=== PATIENT | male | born 1960 | race Caucasian/White ===

== ENCOUNTER 2016-10-09 10:05 | Emergency (ER) | payer OTHER ==
[~2016-10-09] VITALS: Ht 180.3 cm; Wt 90.1 kg
[~2016-10-09 10:05] MED LIST: ASPCH81 PO; SIMV40TA2 PO
[2016-10-09 10:11] VITALS: TEMP 36.7; Ht 180.3 cm; Wt 90.1 kg
[2016-10-09 10:34] VITALS: O2SAT 99
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
[2016-10-09] MEDS ORDERED: OXYC1TAB3 PO (12:08)
[2016-10-09 12:24] VITALS: BP 119/76; PULSE 55; O2SAT 98
== END 2016-10-09 12:20 | disposition home or self-care (01) ==
LOC: C.EDB 10:07
DX: S22.31XA Fracture of one rib, right side, initial encounter for closed fracture (principal); M54.2 Cervicalgia; W20.8XXA Other cause of strike by thrown, projected or falling object, initial encounter; Y93.11 Activity, swimming; Y92.832 Beach as the place of occurrence of the external cause; E78.5 Hyperlipidemia, unspecified

== ENCOUNTER → 2017-05-22 | Outpatient (CLI) | payer OTHER ==
[2017-05-22 13:51] LABS: ALBUMIN 4.1 gm/dl (3.4-5.0); ALT/SGPT 27 U/L (12-78); AST/SGOT 16 U/L (15-37); BLOOD UREA NITROGEN 14 mg/dl (7-18); CARBON DIOXIDE 28 mmol/L (21-32); CHOLESTEROL 155 mg/dl (0-200); CREATININE 1.06 mg/dl (0.60-1.40); GLUCOSE 95 mg/dl (70-99); SODIUM 139 mmol/L (136-145)
[2017-05-22 13:52] LABS: ALKALINE PHOSPHATASE 39 U/L (45-117); LDL CHOLESTEROL CALCULATED 96 mg/dl; TOTAL PROTEIN 7.6 gm/dl (6.4-8.2)
== END | disposition home or self-care (01) ==
LOC: C.LABPBG 07:57
PROVIDERS: ATTEND Family Medicine
DX: Z86.79 Personal history of other diseases of the circulatory system (principal); G47.33 Obstructive sleep apnea (adult) (pediatric); E78.5 Hyperlipidemia, unspecified

== ENCOUNTER 2022-11-12 04:04 | Inpatient (IN) ==
[2022-11-12] MEDS ORDERED: MoRPHine SULFATE 4 MG/ML 1 ML CARP\\VIAL IV STA ×2 (04:20→06:35)
[2022-11-12] MEDS ORDERED: ONDANSETRON INJ 2 MG/ML 2 ML VIAL IV STA (04:20)
[2022-11-12] MEDS ORDERED: SODIUM CHLORIDE 0.9% 500 ML IV STA (04:20)
--- NOTE | 2022-11-12 04:23 | Emergency Department Note ---
History of Present Illness General Chief complaint: Cardiac Assessment Stated complaint: abd Time Seen by Provider: 11/12/22 04:12 History of Present Illness Maximum Pain Intensity: 8 This 62-year-old gentleman on Eliquis for DVT in the left leg presents the ER complaining of right upper quadrant pain tonight after eating pizza. No history of similar symptoms in the past. Patient denies back pain, fevers, diarrhea, trauma to the area. The pain does radiate to his chest. Home Medications Medication Instructions Recorded Confirmed Type Auto Titrating CPAP See Rx Instructions .Route 09/16/20 07/12/22 Rx .COMPLEX #1 ea apixaban 5 mg tablet (Eliquis) 5 mg PO BID 07/11/22 07/12/22 History cyclobenzaprine 5 mg tablet 5 mg PO TID PRN muscle spasm #30 07/12/22 07/12/22 Rx tabs prednisone 10 mg tablet See Rx Instructions PO DAILY #20 07/12/22 07/12/22 Rx tabs Allergies Allergy/AdvReac Type Severity Reaction Status Date / Time amoxicillin Allergy Unknown Hives Verified 07/12/22 11:31 aspirin AdvReac Intermediate EPISTAXIS Verified 07/12/22 11:31 atorvastatin AdvReac Muscle Pain Verified 07/12/22 11:31 Past Med/Surg History Medical History Anemia Diverticular disease History of COVID-19 11/2020; fever, loss of taste/smell; resolved. HLD (hyperlipidemia) Injury of right rotator cuff Perforated bowel hx Sleep apnea CPAP Surgical History History of arthroscopy of right knee History of colon resection History of colonoscopy History of esophagogastroduodenoscopy (EGD) Family History Grandmother (Maternal) Colorectal cancer Father Myocardial infarction Mother Ovarian cancer Other No family history of adverse response to anesthesia Denies family history of Prostate cancer Breast cancer Social History Smoking Status: Never smoker Second Hand Exposure: Yes (hx); Do You Dip or Chew Tobacco: Yes (1 can every day); Hx Alcohol Use: No Hx Substance Use: No Preferred Language: Colombian Communication Ability: Effective Visual Impairment: No Limitations Hearing Ability: Normal Speech Language Pathologist Required: No Beliefs That Will Affect Care: None marital status: Current Living Situation: Spouse current occupational status: employed current occupation: construction Feels Safe at Home: Yes Childhood Exposure to Second-Hand Smoke: Yes Diet: regular caffeine: Yes (Coffee x 2 per day. Soda x 6 per day.) during the past year weight has: remained stable Dental Care, Regularly: Yes Physical Activity Frequency: Daily Seatbelt Use: sometimes Sunscreen Use: No Assistive Devices: None Review of Systems A total of 10 systems reviewed and were otherwise negative Physical Exam Vital Signs Vital Signs - 24 hr 11/12/22 04:09 11/12/22 04:35 11/12/22 05:35 Temperature 36.8 C Temperature Source Temporal Artery Scan Pulse Rate 54 L 54 L 54 L Pulse Rate [Apical] Pulse Rhythm Regular Pulse Rhythm [Apical] Pulse Strength [Apical] Respiratory Rate 20 16 Respiratory Effort / Characteristics Non-Labored Respiratory Depth Normal Respiratory Pattern Blood Pressure 159/94 H Blood Pressure [Right Arm] Blood Pressure Mean 115 Blood Pressure Mean [Right Arm] Pulse Oximetry 99 93 Oxygen Delivery Method Room Air Room Air Sepsis Recent Fever Within 48 Hours No Sepsis New/Unexplained Change in Mental Status N/A Sepsis Action Taken by Nursing No Action Required 11/12/22 06:00 Temperature Temperature Source Pulse Rate Pulse Rate [Apical] 60 Pulse Rhythm Pulse Rhythm [Apical] Regular Pulse Strength [Apical] Normal Respiratory Rate 18 Respiratory Effort / Characteristics Non-Labored Spontaneous Respiratory Depth Normal Respiratory Pattern Regular Blood Pressure Blood Pressure [Right Arm] 129/84 Blood Pressure Mean Blood Pressure Mean [Right Arm] 99 Pulse Oximetry 96 Oxygen Delivery Method Room Air Sepsis Recent Fever Within 48 Hours Sepsis New/Unexplained Change in Mental Status Sepsis Action Taken by Nursing VITALS: Vitals are noted on the nurse's note and reviewed by myself. Vital signs stable. GENERAL: Pleasant gentleman who appears in pain, in no acute distress, nondiaphoretic, well-developed well-nourished. SKIN: The skin was without rashes, erythema, edema, or bruising. There is no tenting of the skin. Capillary reflex less than 2 seconds. HEAD: Normocephalic atraumatic. EARS: External auditory canals clear, EYES: Pupils equal round and reactive to light and accommodation. Conjunctivae without injection, sclerae without icterus. Extraocular movements intact. NOSE: Patent, turbinates without inflammation or discharge. MOUTH: Mucous membranes moist. Pharynx without erythema or exudate. Uvula midline. Airway patent. Tongue does not deviate. NECK: Supple without nuchal rigidity. No lymphadenopathy. No thyromegaly. Cervical spine is nontender. No JVD. HEART: Regular rate and rhythm LUNGS: Clear to auscultation bilaterally without wheezes, rales or rhonchi. No retractions or accessory muscle use. ABDOMEN: Positive bowel sounds x 4. Normal tympanic percussion. Soft, tender right upper quadrant, without masses or organomegaly. No guarding or rebound tenderness. No CVA tenderness MUSCULOSKELETAL: No muscle atrophy, erythema, or edema noted. NEURO: Patient was alert and oriented to person place and time. Normal sensation to light and sharp touch. No focal neurological deficits. Course Administered Medications Discontinued Medications Sodium Chloride (Nss) 500 mls @ 999 mls/hr IV .Q31M STA Stop: 11/12/22 04:50 Last Infusion: 11/12/22 05:29 Dose: 0 mls/hr Documented By: Admin: 11/12/22 04:33 Dose: 999 mls/hr Documented By: PRAKASH Morphine Sulfate (Morphine Sulfate 4 Mg/Ml 1 Ml Carp\Vial) 4 mg IV NOW STA Stop: 11/12/22 04:21 Last Admin: 11/12/22 04:33 Dose: 4 mg Documented By: PRAKASH Ondansetron HCl (Ondansetron Inj 2 Mg/Ml 2 Ml Vial) 4 mg IV NOW STA Stop: 11/12/22 04:21 Last Admin: 11/12/22 04:33 Dose: 4 mg Documented By: PRAKASH Medical Decision Making Medical Records Attestation: I reviewed the patient's medical records. Home Medications Current Medication List: was personally reviewed by me Laboratory Data Attestation: I reviewed the patient's lab results. 11/12/22 04:25 11/12/22 04:25 Lab Results 11/12/22 11/12/22 Range/Units 04:25 04:25 WBC 7.83 (4.8-10.8) K/ul RBC 4.49 L (4.70-6.10) M/uL Hgb 12.9 L (14.0-18.0) g/dl Hct 38.9 L (42.0-52.0) % MCV 86.6 (80.0-100.0) fL MCH 28.7 (25.0-34.0) pg MCHC 33.2 (32.0-36.0) g/dL RDW Std Deviation 41.5 (36.4-46.3) fL RDW Coeff of Gian 13.2 (11.5-14.5) % Plt Count 207 (130-400) K/uL MPV 9.4 (9.4-12.4) fL Immature Gran % (Auto) 0.8 % Neut % (Auto) 66.6 % Lymph % (Auto) 23.0 % Candler % (Auto) 7.9 % Eos % (Auto) 1.3 % Baso % (Auto) 0.4 % Neut # (Auto) 5.22 (1.40-6.50) K/uL Lymph # (Auto) 1.80 (1.20-3.40) K/uL Candler # (Auto) 0.62 H (0.11-0.59) K/uL Eos # (Auto) 0.10 (0.00-0.50) K/uL Baso # (Auto) 0.03 (0.00-0.20) K/uL Immature Gran # (Auto) 0.06 (0.01-0.20) K/uL Sodium 140 (136-145) mmol/L Potassium 4.1 (3.5-5.1) mmol/L Chloride 107 (98-107) mmol/L Carbon Dioxide 28 (21-32) mmol/L Anion Gap 5 (3-11) BUN 18 (6-23) mg/dl Creatinine 1.10 (0.6-1.4) mg/dl Est Cr Clr Drug Dosing Not Reportable Est GFR ( Amer) 82.4 ml/min Est GFR (Non-Af Amer) 71.1 ml/min BUN/Creatinine Ratio 16.4 (10-20) Glucose 106 H (70-99(Fasting)) mg/dl Calcium 8.7 (8.6-10.3) mg/dl Total Bilirubin 0.5 (0.2-1.0) mg/dl AST 14 (13-39) U/L ALT 14 (7-52) U/L Alkaline Phosphatase 36 (34-104) U/L Troponin I High Sens 5.3 (0-20) pg/ml Total Protein 7.1 (6.0-8.3) gm/dl Albumin 4.0 (3.4-5.0) gm/dl Globulin 3.1 (2.5-4.0) gm/dl Albumin/Globulin Ratio 1.3 (0.9-2) Lipase 26 (11-82) U/L Imaging Data Attestation: I personally reviewed and interpreted this imaging study as follows: Radiologist's Impression: Gallbladder Ultrasound 11/12/22 04:20 Exam(s): US GALLBLADDER EXAM: US Abdomen Limited, Gallbladder CLINICAL HISTORY: Reason for exam: ruq pain. TECHNIQUE: Real-time ultrasound of the right upper quadrant with image documentation. COMPARISON: No relevant prior studies available. FINDINGS: Gallbladder: Gallbladder mildly distended with multiple shadowing stones. No wall thickening, pericholecystic fluid or biliary dilation. One or two punctate echogenic foci with comet tail artifact suggestive of underlying adenomyomatosis. Common bile duct: Unremarkable as visualized. No stones. No dilation. Right kidney: Unremarkable as visualized. Pancreas: Obscured by shadowing from overlying bowel gas. IMPRESSION: Gallbladder mildly distended with multiple shadowing stones. No wall thickening, pericholecystic fluid or biliary dilation. Suspect adenomyomatosis. Electronically signed by: Sandeep Sarmiento M.D. 11/12/22 06:31 AM MDM Narrative Prior records/ancillary studies reviewed. Triage Nursing notes reviewed. Additional history obtained from family. The patient's history was concerning for abdominal pain. Differential diagnosis: Etiologies such as gallbladder, cardiac, appendicitis, diverticulitis, PUD, biliary pathology, UTI, pancreatitis, obstruction, mesenteric ischemia, aortic pathology, infections, inflammatory bowel disease, renal colic, as well as others were entertained. Physical examination findings: As above. ER treatment provided: An order was placed for continuous cardiac monitoring. The monitor shows a rate of 50-80 with a sinus rhythm per my Independent interpretation. IV fluids, Zofran and morphine ordered Mefoxin was ordered On reassessment the patient felt better. Diagnostics interpreted by me: ECG: Ordered for upper abdominal pain EKG: Normal sinus, normal intervals, no acute ST-T wave changes. Impression sinus bradycardia 57 independently interpreted by myself I think arrhythmia is unlikely. EKG shows normal sinus rhythm with no interval abnormalities such as QT prolongation or WPW. There are no findings to suggest Brugada syndrome. Cardiac monitoring in the emergency department reveals no tachycardic or bradycardic dysrhythmia. Hypertrophic cardiomyopathy was considered but there are no clear historical elements pointing toward this. EKG is not suggestive. The QRS voltage is not extremely large and there are no suggestive Q waves. The labs Independently Interpreted by myself revealed negative troponin. No worrisome leukocytosis. Normal LFTs Imaging studies: Chest x-ray with no acute consolidation, pneumothorax or free air per my independent interpretation HEART SCORE: Hx: high/mod/low suspicion: 0 ECG: ST depression/nonspecific changes/normal: 0 Age: Greater than 65/45-64/less than 45: 1 Risk factors: (Hypertension, hyperlipidemia, diabetes, coronary disease, tobacco use, cocaine use): 1 Troponin: Greater than 2 times normal limits/1-2 times normal limits/normal: 0 Total: 2 Consultation: A consultation was placed with surgeon Dr. Berry and recommends antibiotics and HIDA scan and medical admission. Case was discussed with medicine. The case was discussed and diagnostics were reviewed. The patient was evaluated in the ER for further treatment. Exam and history seem consistent with biliary colic with concerns for acute cholecystitis. Patient still moderate amount of pain. Labs and diagnostics were independently interpreted by myself. Medicine and surgery were consulted. Surgery recommends antibiotics HIDA scan and medical admission. Medicine was consulted and will evaluate the patient. No worrisome leukocytosis, normal LFTs. Nonischemic EKG. Low heart score. Negative troponin. By the evaluation outlined above emergent etiologies such as appendicitis, diverticulitis, PUD, UTI, pancreatitis, obstruction, mesenteric ischemia, aortic pathology, infections, inflammatory bowel disease, renal colic, as well as others were deemed relatively unlikely. The pt informed about the findings as listed above. All questions were answered and pleased with the treatment. The chart was completed utilizing [employer] voice recognition software. Grammatical errors, random word insertions, pronoun errors, and incomplete sentences are an occassional consequence of this system due to software limitations, ambient noise, and hardware issues. Any formal questions or concerns about the content, text, or information contained within the body of this dictation should be directly addressed to the physician project administrative assistant for clarification. Impression & Plan Biliary colic, Abdominal pain, acute Discharge Plan Visit Data Chief Complaint: Cardiac Assessment Stated Complaint: abd ED Provider: Loraine Goetz ED Midlevel Provider: Cuca Grimes Discharge Problem: Biliary colic, Abdominal pain, acute Patient Disposition: Admitted As Inpatient Condition: Good Forms Stand Alone Forms: [employer] Prescriptions Prescriptions: No Action Auto Titrating CPAP Misc See Rx Instructions .Route .COMPLEX Qty: 1 0RF Rx Instructions: APAP 4-10 cm H2O; nasal mask, nasal mask cushion, heated humidifier, heated chamber, tubing, disposable filters, headgear prednisone 10 mg tablet See Rx Instructions PO DAILY Qty: 20 0RF Rx Instructions: orally daily; 40 mg x3 days, 20 mg x3 days, 10 mg x2 days cyclobenzaprine 5 mg tablet 5 mg PO TID PRN (Reason: muscle spasm) Qty: 30 0RF Eliquis 5 mg tablet 5 mg PO BID Referrals Referrals: Joanna Lucero DO [Primary Care Provider] -
[2022-11-12 04:48] LABS: Basophils # (auto) 0.03 K/uL (0.00-0.20); Basophils % (auto) 0.4 %; Eosinophils % (auto) 1.3 %; Hematocrit (blood only) 38.9 % (42.0-52.0); Hemoglobin 12.9 g/dl (14.0-18.0); Immature Granulocytes # (auto) 0.06 K/uL (0.01-0.20); Immature Granulocytes % (auto) 0.8 %; Mean Corpuscular Hemoglobin 28.7 pg (25.0-34.0); Mean Corpuscular Hgb Conc 33.2 g/dL (32.0-36.0); Mean Corpuscular Volume 86.6 fL (80.0-100.0); Mean Platelet Volume 9.4 fL (9.4-12.4); Monocytes # (auto) 0.62 K/uL (0.11-0.59); Monocytes % (auto) 7.9 %; Neutrophils # (auto) 5.22 K/uL (1.40-6.50); Neutrophils % (auto) 66.6 %; Platelet Count 207 K/uL (130-400); RDW Coefficient of Variation 13.2 % (11.5-14.5); RDW Standard Deviation 41.5 fL (36.4-46.3); Red Blood Count 4.49 M/uL (4.70-6.10); White Blood Count 7.83 K/ul (4.8-10.8)
[2022-11-12 04:58] LABS: Alanine Aminotransferase 14 U/L (7-52); Albumin Globulin Ratio 1.3 (0.9-2); Alkaline Phosphatase 36 U/L (34-104); Anion Gap 5 (3-11); Aspartate Aminotransferase 14 U/L (13-39); BUN Creatinine Ratio 16.4 (10-20); Bilirubin,Total 0.5 mg/dl (0.2-1.0); Blood Urea Nitrogen 18 mg/dl (6-23); Calcium 8.7 mg/dl (8.6-10.3); Carbon Dioxide 28 mmol/L (21-32); Chloride 107 mmol/L (98-107); Est GFR (African American) 82.4 ml/min; Est GFR (Non-African American) 71.1 ml/min; Globulin 3.1 gm/dl (2.5-4.0); Glucose 106 mg/dl (70-99(Fasting)); Lipase 26 U/L (11-82); Potassium 4.1 mmol/L (3.5-5.1); Sodium 140 mmol/L (136-145); Total Protein 7.1 gm/dl (6.0-8.3)
[2022-11-12 05:04] LABS: Troponin I High Sensitivity 5.3 pg/ml (0-20)
--- NOTE | 2022-11-12 06:31 | Ultrasound Report ---
Exam(s): US GALLBLADDER EXAM: US Abdomen Limited, Gallbladder CLINICAL HISTORY: Reason for exam: ruq pain. TECHNIQUE: Real-time ultrasound of the right upper quadrant with image documentation. COMPARISON: No relevant prior studies available. FINDINGS: Gallbladder: Gallbladder mildly distended with multiple shadowing stones. No wall thickening, pericholecystic fluid or biliary dilation. One or two punctate echogenic foci with comet tail artifact suggestive of underlying adenomyomatosis. Common bile duct: Unremarkable as visualized. No stones. No dilation. Right kidney: Unremarkable as visualized. Pancreas: Obscured by shadowing from overlying bowel gas. IMPRESSION: Gallbladder mildly distended with multiple shadowing stones. No wall thickening, pericholecystic fluid or biliary dilation. Suspect adenomyomatosis. Electronically signed by: Sandeep Sarmiento M.D. 11/12/22 06:31 AM
[2022-11-12] MEDS ORDERED: cefOXitin 2,000 MG/60 ML BAG IV STA (06:35)
--- NOTE | 2022-11-12 08:01 | XRay Report ---
XR chest 1V portable HISTORY: Chest pain, nonspecific COMPARISON: Chest 07/11/2022. FINDINGS: No pneumothorax. No pleural effusions. Stable prominence of interstitial markings. No new f ocal lung consolidations to suggest pneumonia. No evidence for pulmonary edema. The cardiac silhouett e remains borderline enlarged. IMPRESSION: No significant change compared to the prior study. No acute process. ACT 112: Negative or not required by law. Electronically signed by: Joshua Holden M.D. 11/12/2022 7:59 AM
[2022-11-12] MEDS ORDERED: POLYETHYLENE (MIRALAX) 17 GM PACK PO PRN (08:59)
[2022-11-12] MEDS ORDERED: MoRPHine SULFATE 2 MG/ML CARP IV PRN (09:04)
--- NOTE | 2022-11-12 09:13 | History & Physical Report ---
Date of Service November 12, 2022 Assessment & Plan (1) Biliary colic: Plan: patient presents with right upper quadrant pain associated with vomiting x2 Ultrasound shows gallstones with no gallbladder wall thickening or biliary dilatation LFTs negative No fever or leukocytosis Cheung sign positive HIDA scan ordered General surgery consulted N.p.o. for bowel rest Treat pain with IV morphine every 4 as needed Start IV ceftriaxone and Flagyl for now Present on Admission?: Yes (2) Abdominal pain, acute: Plan: please see problem #1 biliary colic (3) Obstructive sleep apnea: Plan: patient uses CPAP at night CPAP ordered while here (4) Diverticulosis of sigmoid colon: Plan: patient has a history of bowel perforation due to diverticulitis Had a partial colon resection (5) Deep vein thrombosis of left lower extremity: Plan: patient had a left knee surgery back in May which was complicated by a left lower extremity DVT He was started on Eliquis and has been on it since. It has been 6 months and he is wondering when he can come off of the Eliquis Since he has already been on it for 6 months and this was a single episode that was triggered by surgery, I will hold the Eliquis in case he ends up needing surgery. He probably can stop taking the Eliquis since it has already been 6 months but the decision can be deferred to the discharging physician or his PCP. Plan DVT prophylaxis: hold Eliquis, start Lovenox prophylactic dose CODE STATUS: he confirmedDNR/DNI History of Present Illness Chief Complaint: Right upper quadrant pain Primary Care Provider: Joanna Lucero DO This is a 62-year-old male who presented to the emergency room with the above chief complaint. In brief, the patient had a regular day yesterday, had pizza and peppers for supper at around 4 PM. later at 7 PM, he started developing a right upper quadrant pain that was getting worse with time. He tried to belch, change positions, nothing helped. The pain got as bad as a 10/10 in intensity. It was associated with vomiting. He vomited twice and that is when he decided to come to the emergency room. He had a bowel perforation from diverticulitis in the past and this pain was very similar to that and thus he did not wait for too long. He had an right upper quadrant ultrasound done in the emergency room that showed that the gallbladder was mildly distended with multiple stones. No wall thickening, biliary dilatation or pericholecystic fluid seen. He does not have any leukocytosis or fever. Surgery was consulted from the emergency room who recommended a HIDA scan. The patient received 4 mg of morphine in the emergency room with some relief of the pain. Currently the pain is at a 3/10 in intensity but coughing or palpation Of the right upper quadrant is making the pain worse. The patient is being admitted. He will be started on IV antibiotics. General surgery will be consulted. HIDA scan ordered. Please note that the patient is not on prednisone and cyclobenzaprine as noted in the home med rec. He only takes Eliquis at home. He was diagnosed with a DVT after his left knee surgery in May. He has been on Eliquis since then. It has now been 6 months. Allergies Allergy/AdvReac Type Severity Reaction Status Date / Time amoxicillin Allergy Unknown Hives Verified 07/12/22 11:31 aspirin AdvReac Intermediate EPISTAXIS Verified 07/12/22 11:31 atorvastatin AdvReac Muscle Pain Verified 07/12/22 11:31 Home Medications Medication Instructions Recorded Confirmed Type Auto Titrating CPAP See Rx Instructions .Route 09/16/20 07/12/22 Rx .COMPLEX #1 ea apixaban 5 mg tablet (Eliquis) 5 mg PO BID 07/11/22 07/12/22 History cyclobenzaprine 5 mg tablet 5 mg PO TID PRN muscle spasm #30 07/12/22 07/12/22 Rx tabs prednisone 10 mg tablet See Rx Instructions PO DAILY #20 07/12/22 07/12/22 Rx tabs Past Med/Surg History Medical History Anemia Diverticular disease History of COVID-19 11/2020; fever, loss of taste/smell; resolved. HLD (hyperlipidemia) Injury of right rotator cuff Perforated bowel hx Sleep apnea CPAP Surgical History History of arthroscopy of right knee History of colon resection History of colonoscopy History of esophagogastroduodenoscopy (EGD) Family History Grandmother (Maternal) Colorectal cancer Father Myocardial infarction Mother Ovarian cancer Other No family history of adverse response to anesthesia Denies family history of Prostate cancer Breast cancer Social History Smoking Status: Never smoker Second Hand Exposure: Yes (hx); Do You Dip or Chew Tobacco: Yes (1 can every day); Hx Alcohol Use: No Hx Substance Use: No Preferred Language: Niuean Communication Ability: Effective Visual Impairment: No Limitations Hearing Ability: Normal Nail Specialist Required: No Beliefs That Will Affect Care: None marital status: Current Living Situation: Spouse current occupational status: employed current occupation: construction Feels Safe at Home: Yes Childhood Exposure to Second-Hand Smoke: Yes Diet: regular caffeine: Yes (Coffee x 2 per day. Soda x 6 per day.) during the past year weight has: remained stable Dental Care, Regularly: Yes Physical Activity Frequency: Daily Seatbelt Use: sometimes Sunscreen Use: No Assistive Devices: None Review of Systems Review of Systems: All systems reviewed & are unremarkable except as noted in Subjective Physical Exam Physical Exam: General appearance: Awake, conversant, able to answer questions appropriately. AOx3 Pupils, equally reactive to light and accommodation Neck: No masses no thyromegaly Respiration: Normal effort, no use of accessory muscles, clear to auscultation bilaterally Cardiovascular: S1-S2/regular rate and rhythm. No murmur, rubs or gallops. No edema Abdomen: Soft. Nondistended. Tender to palpation in the right upper quadrant with no rebound, rigidity, guarding. Cheung sign positive. No hepatosplenomegaly Musculoskeletal: No clubbing, no cyanosis, normal range of motion Skin: No rashes, no nodules Neuro exam: Cranial nerves intact, sensation grossly intact Psychiatric: Patient has good judgment and insight. AOx3. Mood and affect appear normal Lymphatics: No cervical or axillary lymphadenopathy noted Results & Data Results & Data Vital Signs (Past 12 Hours) Vital Signs Temp Pulse Pulse Resp BP BP Pulse Ox 11/12/22 09:00 63 17 128/80 94 11/12/22 08:30 65 20 128/83 92 11/12/22 08:00 60 15 122/78 93 11/12/22 07:00 63 16 130/82 91 11/12/22 06:00 60 18 129/84 96 11/12/22 05:35 54 L 16 93 11/12/22 04:35 54 L 11/12/22 04:09 36.8 C 54 L 20 159/94 H 99 O2 Del Method 11/12/22 09:00 Room Air 11/12/22 08:30 Room Air 11/12/22 08:00 Room Air 11/12/22 07:00 Room Air 11/12/22 06:00 Room Air 11/12/22 05:35 Room Air 11/12/22 04:35 11/12/22 04:09 Room Air Laboratory Results Lab Results 11/12/22 11/12/22 11/12/22 Range/Units 04:25 04:25 06:19 WBC 7.83 (4.8-10.8) K/ul RBC 4.49 L (4.70-6.10) M/uL Hgb 12.9 L (14.0-18.0) g/dl Hct 38.9 L (42.0-52.0) % MCV 86.6 (80.0-100.0) fL MCH 28.7 (25.0-34.0) pg MCHC 33.2 (32.0-36.0) g/dL RDW Std Deviation 41.5 (36.4-46.3) fL RDW Coeff of Gian 13.2 (11.5-14.5) % Plt Count 207 (130-400) K/uL MPV 9.4 (9.4-12.4) fL Immature Gran % (Auto) 0.8 % Neut % (Auto) 66.6 % Lymph % (Auto) 23.0 % [place] % (Auto) 7.9 % Eos % (Auto) 1.3 % Baso % (Auto) 0.4 % Neut # (Auto) 5.22 (1.40-6.50) K/uL Lymph # (Auto) 1.80 (1.20-3.40) K/uL [place] # (Auto) 0.62 H (0.11-0.59) K/uL Eos # (Auto) 0.10 (0.00-0.50) K/uL Baso # (Auto) 0.03 (0.00-0.20) K/uL Immature Gran # (Auto) 0.06 (0.01-0.20) K/uL Sodium 140 (136-145) mmol/L Potassium 4.1 (3.5-5.1) mmol/L Chloride 107 (98-107) mmol/L Carbon Dioxide 28 (21-32) mmol/L Anion Gap 5 (3-11) BUN 18 (6-23) mg/dl Creatinine 1.10 (0.6-1.4) mg/dl Est Cr Clr Drug Dosing Not Reportable Est GFR ( Amer) 82.4 ml/min Est GFR (Non-Af Amer) 71.1 ml/min BUN/Creatinine Ratio 16.4 (10-20) Glucose 106 H (70-99(Fasting)) mg/dl Calcium 8.7 (8.6-10.3) mg/dl Total Bilirubin 0.5 (0.2-1.0) mg/dl AST 14 (13-39) U/L ALT 14 (7-52) U/L Alkaline Phosphatase 36 (34-104) U/L Troponin I High Sens 5.3 5.6 (0-20) pg/ml Total Protein 7.1 (6.0-8.3) gm/dl Albumin 4.0 (3.4-5.0) gm/dl Globulin 3.1 (2.5-4.0) gm/dl Albumin/Globulin Ratio 1.3 (0.9-2) Lipase 26 (11-82) U/L Diagnostic Findings Chest X-Ray 11/12/22 04:20 XR chest 1V portable HISTORY: Chest pain, nonspecific COMPARISON: Chest 07/11/2022. FINDINGS: No pneumothorax. No pleural effusions. Stable prominence of interstitial markings. No new focal lung consolidations to suggest pneumonia. No evidence for pulmonary edema. The cardiac silhouette remains borderline enlarged. IMPRESSION: No significant change compared to the prior study. No acute process. ACT 112: Negative or not required by law. Electronically signed by: Joshua Holden M.D. 11/12/2022 7:59 AM Gallbladder Ultrasound 11/12/22 04:20 Exam(s): US GALLBLADDER EXAM: US Abdomen Limited, Gallbladder CLINICAL HISTORY: Reason for exam: ruq pain. TECHNIQUE: Real-time ultrasound of the right upper quadrant with image documentation. COMPARISON: No relevant prior studies available. FINDINGS: Gallbladder: Gallbladder mildly distended with multiple shadowing stones. No wall thickening, pericholecystic fluid or biliary dilation. One or two punctate echogenic foci with comet tail artifact suggestive of underlying adenomyomatosis. Common bile duct: Unremarkable as visualized. No stones. No dilation. Right kidney: Unremarkable as visualized. Pancreas: Obscured by shadowing from overlying bowel gas. IMPRESSION: Gallbladder mildly distended with multiple shadowing stones. No wall thickening, pericholecystic fluid or biliary dilation. Suspect adenomyomatosis. Electronically signed by: Sandeep Sarmiento M.D. 11/12/22 06:31 AM Code Status & VTE Plan VTE Prophylaxis Plan VTE Prophylaxis will be ordered: Yes PG Care Time/CCT Total # of Minutes Spent Total Time Spent with Patient: Total time spent is greater than 50% in coordination of care (as documented) at patient's floor/unit and/or counseling patient: Coding Level of Care Code 17260 INT INP/OBS CARE 2/55MIN Diagnoses Biliary colic K80.50 Abdominal pain, acute R10.9 Obstructive sleep apnea G47.33 Diverticulosis of sigmoid colon K57.30 Deep vein thrombosis of left lower extremity I82.402
--- NOTE | 2022-11-12 09:28 | Electrocardiogram Report ---
Test Reason : Blood Pressure : / mmHG Vent. Rate : 057 BPM Atrial Rate : 057 BPM P-R Int : 172 ms QRS Dur : 084 ms QT Int : 414 ms P-R-T Axes : 018 -11 006 degrees QTc Int : 402 ms Sinus bradycardia Otherwise normal ECG When compared with ECG of 11-JUL-2022 10:00, No significant change was found Confirmed by Kareem Guadarrama ([id number]) on 11/12/2022 9:28:01 AM Referred By: Joanna Lucero Confirmed By:Kareem Guadarrama
--- NOTE | 2022-11-12 10:03 | Surgery Consultation ---
Date of Consultation November 12, 2022 Assessment & Plan (1) Cholelithiasis: Assessment: Patient is 62 years old gentleman who presented to ED with a 10 hours a history right upper quadrant pain. He had a ultrasound diagnosis of gallstone. WBC and liver enzymes are normal. Now the pain is is gone. Plan: Recommend to do HIDA scan. Retired so gallbladder function. Clear diet now. N.p.o. after midnight. Hold Eliquis now. SCD. IV fluid. We will follow-up. History of Present Illness Reason for Consultation: Right Quadrant pain, gallstone Requesting Physician: Itz Kaminski MD History of Present Illness CC: Right upper quadrant pain HPI: Patient is a 62 years old gentleman who presented to ED with 10-hour history right upper quadrant pain. Patient had a piece of room in the 4 PM yesterday. Patient developed right upper quadrant pain around the 7 PM. The pain is a sharp. The pain is not radiated to the back. There is no nausea or vomiting. Patient had the LFTs test which shows normal. Ultrasound show gallstone without gallbladder wall thickening. Patient said that the pain is gone. Patient feels much better. Patient perforated prepped for diverticulitis is a 11 years ago. Allergies Allergy/AdvReac Type Severity Reaction Status Date / Time amoxicillin Allergy Unknown Hives Verified 07/12/22 11:31 aspirin AdvReac Intermediate EPISTAXIS Verified 07/12/22 11:31 atorvastatin AdvReac Muscle Pain Verified 07/12/22 11:31 Home Medications Medication Instructions Recorded Confirmed Type Auto Titrating CPAP See Rx Instructions .Route 09/16/20 07/12/22 Rx .COMPLEX #1 ea apixaban 5 mg tablet (Eliquis) 5 mg PO BID 07/11/22 07/12/22 History cyclobenzaprine 5 mg tablet 5 mg PO TID PRN muscle spasm #30 07/12/22 07/12/22 Rx tabs prednisone 10 mg tablet See Rx Instructions PO DAILY #20 07/12/22 07/12/22 Rx tabs Patient History Medical History Anemia Diverticular disease History of COVID-19 11/2020; fever, loss of taste/smell; resolved. HLD (hyperlipidemia) Injury of right rotator cuff Perforated bowel hx Sleep apnea CPAP Surgical History History of arthroscopy of right knee History of colon resection History of colonoscopy History of esophagogastroduodenoscopy (EGD) Family History Grandmother (Maternal) Colorectal cancer Father Myocardial infarction Mother Ovarian cancer Other No family history of adverse response to anesthesia Denies family history of Prostate cancer Breast cancer Social History Smoking Status: Never smoker Second Hand Exposure: Yes (hx); Do You Dip or Chew Tobacco: Yes (1 can every day); Hx Alcohol Use: No Hx Substance Use: No Preferred Language: Pashto Communication Ability: Effective Visual Impairment: No Limitations Hearing Ability: Normal Milieu Manager Required: No Beliefs That Will Affect Care: None marital status: Current Living Situation: Spouse current occupational status: employed current occupation: construction Feels Safe at Home: Yes Childhood Exposure to Second-Hand Smoke: Yes Diet: regular caffeine: Yes (Coffee x 2 per day. Soda x 6 per day.) during the past year weight has: remained stable Dental Care, Regularly: Yes Physical Activity Frequency: Daily Seatbelt Use: sometimes Sunscreen Use: No Assistive Devices: None Review of Systems Constitutional: as per Subjective / HPI Eyes: as per Subjective / HPI Respiratory: as per Subjective / HPI (Tobacco user) Cardiovascular: as per Subjective / HPI Gastrointestinal: Diverticulitis with a bowel perforation, gastritis erosions Genitourinary: + as per Subjective / HPI Neurologic: as per Subjective / HPI Psychiatric: as per Subjective / HPI Endocrine: as per Subjective / HPI Hematologic / Lymphatic: as per Subjective / HPI anemia Physical Exam Constitutional: WD/WN, vitals as above no distress Eyes: PERRL, conjunctivae normal, anicteric sclerae Neck: trachea midline, no thyromegaly Respiratory: normal respiratory effort, lungs clear to auscultation Cardiovascular: RRR, no murmur, no edema Gastrointestinal (Abdomen): soft, no significant tenderness at RUQ, middle line scar. BS + Musculoskeletal: no cyanosis or clubbing, extremities motor strength 5/5 Neurologic: patellar DTR's 2+ bilat, sensation intact Psychiatric: A+Ox3, euthymic affect Results & Data Vital Signs (Past 12 Hours) Vital Signs Temp Pulse Pulse Resp BP BP Pulse Ox 11/12/22 09:17 57 L 11/12/22 09:00 63 17 128/80 94 11/12/22 08:30 65 20 128/83 92 11/12/22 08:00 60 15 122/78 93 11/12/22 07:00 63 16 130/82 91 11/12/22 06:00 60 18 129/84 96 11/12/22 05:35 54 L 16 93 11/12/22 04:35 54 L 11/12/22 04:09 36.8 C 54 L 20 159/94 H 99 O2 Del Method 11/12/22 09:17 11/12/22 09:00 Room Air 11/12/22 08:30 Room Air 11/12/22 08:00 Room Air 11/12/22 07:00 Room Air 11/12/22 06:00 Room Air 11/12/22 05:35 Room Air 11/12/22 04:35 11/12/22 04:09 Room Air Laboratory Results Lab Results 11/12/22 11/12/22 11/12/22 Range/Units 04:25 04:25 06:19 WBC 7.83 (4.8-10.8) K/ul RBC 4.49 L (4.70-6.10) M/uL Hgb 12.9 L (14.0-18.0) g/dl Hct 38.9 L (42.0-52.0) % MCV 86.6 (80.0-100.0) fL MCH 28.7 (25.0-34.0) pg MCHC 33.2 (32.0-36.0) g/dL RDW Std Deviation 41.5 (36.4-46.3) fL RDW Coeff of Gian 13.2 (11.5-14.5) % Plt Count 207 (130-400) K/uL MPV 9.4 (9.4-12.4) fL Immature Gran % (Auto) 0.8 % Neut % (Auto) 66.6 % Lymph % (Auto) 23.0 % [place] % (Auto) 7.9 % Eos % (Auto) 1.3 % Baso % (Auto) 0.4 % Neut # (Auto) 5.22 (1.40-6.50) K/uL Lymph # (Auto) 1.80 (1.20-3.40) K/uL [place] # (Auto) 0.62 H (0.11-0.59) K/uL Eos # (Auto) 0.10 (0.00-0.50) K/uL Baso # (Auto) 0.03 (0.00-0.20) K/uL Immature Gran # (Auto) 0.06 (0.01-0.20) K/uL Sodium 140 (136-145) mmol/L Potassium 4.1 (3.5-5.1) mmol/L Chloride 107 (98-107) mmol/L Carbon Dioxide 28 (21-32) mmol/L Anion Gap 5 (3-11) BUN 18 (6-23) mg/dl Creatinine 1.10 (0.6-1.4) mg/dl Est Cr Clr Drug Dosing Not Reportable Est GFR ( Amer) 82.4 ml/min Est GFR (Non-Af Amer) 71.1 ml/min BUN/Creatinine Ratio 16.4 (10-20) Glucose 106 H (70-99(Fasting)) mg/dl Calcium 8.7 (8.6-10.3) mg/dl Total Bilirubin 0.5 (0.2-1.0) mg/dl AST 14 (13-39) U/L ALT 14 (7-52) U/L Alkaline Phosphatase 36 (34-104) U/L Troponin I High Sens 5.3 5.6 (0-20) pg/ml Total Protein 7.1 (6.0-8.3) gm/dl Albumin 4.0 (3.4-5.0) gm/dl Globulin 3.1 (2.5-4.0) gm/dl Albumin/Globulin Ratio 1.3 (0.9-2) Lipase 26 (11-82) U/L Diagnostic Findings Exam(s): US GALLBLADDER EXAM: US Abdomen Limited, Gallbladder CLINICAL HISTORY: Reason for exam: ruq pain. TECHNIQUE: Real-time ultrasound of the right upper quadrant with image documentation. COMPARISON: No relevant prior studies available. FINDINGS: Gallbladder: Gallbladder mildly distended with multiple shadowing stones. No wall thickening, pericholecystic fluid or biliary dilation. One or two punctate echogenic foci with comet tail artifact suggestive of underlying adenomyomatosis. Common bile duct: Unremarkable as visualized. No stones. No dilation. Right kidney: Unremarkable as visualized. Pancreas: Obscured by shadowing from overlying bowel gas. IMPRESSION: Gallbladder mildly distended with multiple shadowing stones. No wall thickening, pericholecystic fluid or biliary dilation. Suspect adenomyomatosis.
[2022-11-12] MEDS ORDERED: Patient's HEIGHT &/or WEIGHT Needed SCH (10:45)
[2022-11-12] MEDS: metroNIDAZOLE 500 MG/100 ML BAG IV SCH ×2 (11:09→18:39)
[2022-11-12] MEDS: SODIUM CHLORIDE 0.9% 1,000 ML IV SCH ×2 (11:34→18:06)
[2022-11-12] MEDS: ACETAMINOPHEN 325 MG TAB PO PRN ×2 (12:58→18:12)
[2022-11-12] MEDS: ENOXAPARIN INJ 40 MG/0.4 ML SYR SQ SCH (13:47)
[2022-11-12] MEDS: ACETAMINOPHEN 1,000 MG/100 ML VIAL IV PRN (20:15)
[2022-11-13] MEDS: metroNIDAZOLE 500 MG/100 ML BAG IV SCH ×3 (01:05→17:44)
[2022-11-13] MEDS: SODIUM CHLORIDE 0.9% 1,000 ML IV SCH ×2 (03:36→16:15)
[2022-11-13] MEDS: cefTRIAXone SODIUM 2,000 MG in DEXTROSE 5% 50 ML IV SCH (05:35)
[2022-11-13] MEDS: ENOXAPARIN INJ 40 MG/0.4 ML SYR SQ SCH (08:03)
--- NOTE | 2022-11-13 10:40 | Nuclear Medicine Report ---
NUCLEAR MEDICINE HEPATOBILIARY SCAN HISTORY: Right upper quadrant pain. COMPARISON: Abdominal ultrasound 11/12/2022. TECHNIQUE: Immediately following the intravenous administration of 5.5 mCi Tc-99m Choletec, dynamic a nterior abdominal imaging was performed. FINDINGS: Uniform hepatic tracer accumulation is shown. Prompt intrahepatic biliary excretion is seen. The gall bladder, common bile duct, and small bowel are all visualized by 50 minutes. This appearance represen ts the normal sequence of biliary excretion. IMPRESSION: 1. No evidence for cystic duct obstruction. ACT 112: Negative or not required by law. Electronically signed by: Joshua Holden M.D. 11/13/2022 10:39 AM
[2022-11-13 11:39] LABS: Basophils # (auto) 0.03 K/uL (0.00-0.20); Basophils % (auto) 0.5 %; Eosinophils # (auto) 0.12 K/uL (0.00-0.50); Eosinophils % (auto) 1.9 %; Hematocrit (blood only) 36.6 % (42.0-52.0); Hemoglobin 12.3 g/dl (14.0-18.0); Immature Granulocytes # (auto) 0.03 K/uL (0.01-0.20); Immature Granulocytes % (auto) 0.5 %; Lymphocytes # (auto) 1.77 K/uL (1.20-3.40); Lymphocytes % (auto) 27.8 %; Mean Corpuscular Hemoglobin 29.1 pg (25.0-34.0); Mean Corpuscular Hgb Conc 33.6 g/dL (32.0-36.0); Mean Corpuscular Volume 86.7 fL (80.0-100.0); Mean Platelet Volume 9.4 fL (9.4-12.4); Monocytes # (auto) 0.52 K/uL (0.11-0.59); Monocytes % (auto) 8.2 %; Neutrophils # (auto) 3.89 K/uL (1.40-6.50); Neutrophils % (auto) 61.1 %; Platelet Count 180 K/uL (130-400); RDW Coefficient of Variation 13.3 % (11.5-14.5); RDW Standard Deviation 41.8 fL (36.4-46.3); Red Blood Count 4.22 M/uL (4.70-6.10); White Blood Count 6.36 K/ul (4.8-10.8)
[2022-11-13 12:07] LABS: Albumin Globulin Ratio 1.3 (0.9-2); Albumin Level 3.5 gm/dl (3.4-5.0); Bilirubin,Total 0.8 mg/dl (0.2-1.0); Calcium 8.4 mg/dl (8.6-10.3); Est GFR (African American) 92.4 ml/min; Est GFR (Non-African American) 79.7 ml/min; Globulin 2.8 gm/dl (2.5-4.0); Potassium 4.1 mmol/L (3.5-5.1); Total Protein 6.3 gm/dl (6.0-8.3)
--- NOTE | 2022-11-13 12:29 | Surgery Progress Note ---
Date of Service November 13, 2022 Assessment & Plan (1) Cholelithiasis: Plan: Assessment: Patient is 62 years old gentleman who presented to ED with a 10 hours a history right upper quadrant pain. He had a ultrasound diagnosis of gallstone. WBC and liver enzymes are normal. Now the pain is is gone. Plan: Recommend to do HIDA scan. Retired so gallbladder function. Clear diet now. N.p.o. after midnight. Hold Eliquis now. SCD. IV fluid. We will follow-up. 11/13/2022 12:39 PM, F/U gallstone pt feels better, no abdominal pain, no fever, normal WBC, HIDA scan- negative, plan, pt can be discharged home today, with low fat diet, F/U me in 2 weeks, , I will do elective cholecystectomy on outpatient sitting which is safest. let gallbladder cool down in next 4-6 week. pt agreed with the plan, I answered all questions. I also instructed pt, he call my office if pt develops severe abdominal pain with nausea and vomiting. Admission and Anticipated Discharge Date Admission Date: November 12, 2022 Subjective pt has no significant abdominal pain, no nausea, no vomiting, no fever, today HIDA scan- negative. Review of Systems Constitutional: as per Subjective / HPI Eyes: as per Subjective / HPI Respiratory: as per Subjective / HPI (Tobacco user) Cardiovascular: as per Subjective / HPI Gastrointestinal: Diverticulitis with a bowel perforation, gastritis erosions Genitourinary: + as per Subjective / HPI Neurologic: as per Subjective / HPI Psychiatric: as per Subjective / HPI Endocrine: as per Subjective / HPI Hematologic / Lymphatic: as per Subjective / HPI anemia Physical Exam Constitutional: WD/WN, vitals as above Eyes: PERRL, conjunctivae normal, anicteric sclerae Neck: trachea midline, no thyromegaly Respiratory: normal respiratory effort, lungs clear to auscultation Cardiovascular: RRR, no murmur, no edema Gastrointestinal (Abdomen): soft, no tenderness or distend on abdomen, BS +. Musculoskeletal: no cyanosis or clubbing, extremities motor strength 5/5 Neurologic: patellar DTR's 2+ bilat, sensation intact Psychiatric: A+Ox3, euthymic affect Results & Data Vital Signs (Past 12 Hours) Vital Signs Temp Pulse Pulse Resp BP Pulse Ox O2 Del Method 11/13/22 11:31 36.6 C 60 16 112/70 94 Room Air 11/13/22 07:50 36.8 C 56 L 16 107/68 96 Room Air 11/13/22 07:20 56 L 11/13/22 04:55 36.5 C 54 L 20 119/75 97 CPAP 11/13/22 02:28 60 15 97 Laboratory Results Abnormal lab results 11/13/22 11/13/22 Range/Units 11:20 11:20 RBC 4.22 L (4.70-6.10) M/uL Hgb 12.3 L (14.0-18.0) g/dl Hct 36.6 L (42.0-52.0) % Calcium 8.4 L (8.6-10.3) mg/dl AST 12 L (13-39) U/L Diagnostic Findings NUCLEAR MEDICINE HEPATOBILIARY SCAN HISTORY: Right upper quadrant pain. COMPARISON: Abdominal ultrasound 11/12/2022. TECHNIQUE: Immediately following the intravenous administration of 5.5 mCi Tc- 99m Choletec, dynamic anterior abdominal imaging was performed. FINDINGS: Uniform hepatic tracer accumulation is shown. Prompt intrahepatic biliary excretion is seen. The gallbladder, common bile duct, and small bowel are all visualized by 50 minutes. This appearance represents the normal sequence of biliary excretion. IMPRESSION: 1. No evidence for cystic duct obstruction.
--- NOTE | 2022-11-13 16:11 | Hospitalist Progress Note ---
Date of Service November 13, 2022 Assessment & Plan (1) Biliary colic: Plan: patient presents with right upper quadrant pain associated with vomiting x2 Ultrasound shows gallstones with no gallbladder wall thickening or biliary dilatation LFTs negative x 2 -HIDA scan normal No fever or leukocytosis Cheung sign remains positive and pain recurred again today after diet resumed General surgery consulted-will now plan for lap tyron tomorrow--> NPO after md night, restart IVFs and make NPO again Treat pain with IV morphine every 4 as needed continue IV ceftriaxone and Flagyl for now (2) Obstructive sleep apnea: Plan: patient uses CPAP at night CPAP ordered while here (3) Diverticulosis of sigmoid colon: Plan: patient has a history of bowel perforation due to diverticulitis Had a partial colon resection (4) Deep vein thrombosis of left lower extremity: Plan: patient had a left knee surgery back in May which was complicated by a left lower extremity DVT a few days later He was started on Eliquis and has been on it since x 6 months -hold ELiquis until post-op but would recommend he stay on it for at least 2 more weeks after surgery given increased risk of DVT provoked by surgery -he has a f/u DOppler and appt with a Tooth Grinder to determine if/when he can come off ELiquis after that -no evidence of DVT on exam today (5) Pre-syncope: Plan: has had numerous episodes of presyncope for which he has seen Neuro and Cardiology over the last 1-2 months Seizures were ruled out and had brain imaging as per /patient had ECHO 09/2022 no valvular disease and normal EF has stress test ordered as outpt, troponins here negative serially, ECG no ischemic changes here with SB while sleeping and 60s during day-continue to monitor for arrhythmia here it was associated with the RUQ pain and resolved with lying flat, vitals normal during the episode--> perhaps vasovagal? continue to monitor Plan DVT prophylaxis: hold Eliquis,dc Lovenox until post-op Dispo-continued stay for cholecystectomy discussed care with Dr. Berry Admission and Anticipated Discharge Date Admission Date: November 12, 2022 Subjective Pt was feeling well this AM and then after eating low fat diet for lunch, he had recurrence of RUQ pain the same as before.Not quite as severe, was a 4/10 when I saw him, no nausea. He also then started feeling a little lightheaded similar to multiple previous episodes he has had at home. He has recently seen a Tooth Grinder and a Neurologist for these episodes, had an ECHO, a stress test, and a 2 week cardiac event monitor of which he doesn't have the results. Tele with SB and NSR rates 40-60s. HR was in the 80s when I saw him with the lightheaded episode. This got better when I layed him flat. Physical Exam Constitutional: WD/WN, vitals as above Neck: trachea midline, no thyromegaly Respiratory: normal respiratory effort, lungs clear to auscultation Cardiovascular: RRR, no murmur, no edema Chest (Breasts): Chest: normal inspection of chest Gastrointestinal (Abdomen): Inspection/Auscultation: normal bowel sounds; abdomen not distended Percussion/Palpation: + abdomen tender (+TTP RUQ w/ +Cheung's sign) and abdomen soft; no guarding Musculoskeletal: Extremities: extremities normal to inspection; no cyanosis and no clubbing Skin: no rashes, warm and dry Neurologic: moves all extremities and awake; no focal motor deficits Psychiatric: A+Ox3, euthymic affect Lymphatic: no lymphedema Results & Data Results & Data Vital Signs (Past 12 Hours) Vital Signs Temp Pulse Pulse Resp BP Pulse Ox O2 Del Method 11/13/22 14:52 89 11/13/22 11:31 36.6 C 60 16 112/70 94 Room Air 11/13/22 07:50 36.8 C 56 L 16 107/68 96 Room Air 11/13/22 07:20 56 L 11/13/22 04:55 36.5 C 54 L 20 119/75 97 CPAP Laboratory Results CBC, CMP, lipase reviewed Diagnostic Findings Hepatobiliary Scan Nuclear Medicine 11/13/22 10:00 NUCLEAR MEDICINE HEPATOBILIARY SCAN HISTORY: Right upper quadrant pain. COMPARISON: Abdominal ultrasound 11/12/2022. TECHNIQUE: Immediately following the intravenous administration of 5.5 mCi Tc- 99m Choletec, dynamic anterior abdominal imaging was performed. FINDINGS: Uniform hepatic tracer accumulation is shown. Prompt intrahepatic biliary excretion is seen. The gallbladder, common bile duct, and small bowel are all visualized by 50 minutes. This appearance represents the normal sequence of biliary excretion. IMPRESSION: 1. No evidence for cystic duct obstruction. ACT 112: Negative or not required by law. Electronically signed by: Joshua Holden M.D. 11/13/2022 10:39 AM PG Care Time/CCT Total # of Minutes Spent Total Time Spent with Patient: Total time spent is greater than 50% in coordination of care (as documented) at patient's floor/unit and/or counseling patient: Coding Level of Care Code 75221 SUB INP/OBS CARE 3/50MIN Diagnoses Biliary colic K80.50 Obstructive sleep apnea G47.33 Diverticulosis of sigmoid colon K57.30 Deep vein thrombosis of left lower extremity I82.402 Pre-syncope R55
[2022-11-13] MEDS: ACETAMINOPHEN 1,000 MG/100 ML VIAL IV PRN (20:46)
[2022-11-14] MEDS: metroNIDAZOLE 500 MG/100 ML BAG IV SCH ×3 (00:23→19:07)
[2022-11-14] MEDS: SODIUM CHLORIDE 0.9% 1,000 ML IV SCH ×3 (01:21→21:00)
[2022-11-14] MEDS: cefTRIAXone SODIUM 2,000 MG in DEXTROSE 5% 50 ML IV SCH (04:59)
[2022-11-14 07:14] LABS: Basophils # (auto) 0.03 K/uL (0.00-0.20); Basophils % (auto) 0.5 %; Eosinophils # (auto) 0.18 K/uL (0.00-0.50); Eosinophils % (auto) 3.2 %; Hematocrit (blood only) 36.7 % (42.0-52.0); Hemoglobin 12.1 g/dl (14.0-18.0); Immature Granulocytes # (auto) 0.03 K/uL (0.01-0.20); Immature Granulocytes % (auto) 0.5 %; Lymphocytes # (auto) 1.74 K/uL (1.20-3.40); Lymphocytes % (auto) 31.1 %; Mean Corpuscular Hemoglobin 28.9 pg (25.0-34.0); Mean Corpuscular Volume 87.8 fL (80.0-100.0); Mean Platelet Volume 9.3 fL (9.4-12.4); Monocytes % (auto) 8.9 %; Neutrophils # (auto) 3.11 K/uL (1.40-6.50); Neutrophils % (auto) 55.8 %; Platelet Count 198 K/uL (130-400); RDW Coefficient of Variation 13.2 % (11.5-14.5); RDW Standard Deviation 42.8 fL (36.4-46.3); Red Blood Count 4.18 M/uL (4.70-6.10); White Blood Count 5.59 K/ul (4.8-10.8)
[2022-11-14 07:51] LABS: Albumin Globulin Ratio 1.2 (0.9-2); Albumin Level 3.4 gm/dl (3.4-5.0); BUN Creatinine Ratio 14.4 (10-20); Bilirubin,Total 0.5 mg/dl (0.2-1.0); Calcium 7.9 mg/dl (8.6-10.3); Creatinine Clr Calc Pharmacy 78.8 ml/min; Est GFR (African American) 81.5 ml/min; Est GFR (Non-African American) 70.3 ml/min; Globulin 2.8 gm/dl (2.5-4.0); Magnesium 1.9 mg/dl (1.7-2.4); Total Protein 6.2 gm/dl (6.0-8.3)
[2022-11-14] MEDS: ACETAMINOPHEN 1,000 MG/100 ML VIAL IV PRN ×2 (08:28→22:04)
--- NOTE | 2022-11-14 09:39 | Surgery Progress Note ---
Date of Service November 14, 2022 Assessment & Plan (1) Biliary colic: (2) Cholelithiasis: Plan I had a long discussion with him concerning the risks and benefits of a laparoscopic cholecystectomy. All his questions were answered. We discussed the recovery course as well as the restrictions. He is agreeable to proceed. We will take him to the operating room at the earliest convenience. Admission and Anticipated Discharge Date Admission Date: November 12, 2022 Subjective Continues to have right upper quadrant pain after eating. HIDA scan was n egative. Denies fevers or chills. Physical Exam Physical Exam: NAD, A&O x3 AFVSS Abdomen: Soft, nondistended TTP in RUQ Results & Data Vital Signs (Past 12 Hours) Vital Signs Temp Pulse Pulse Resp BP BP Pulse Ox 11/14/22 07:34 36.3 C L 55 L 16 128/78 95 11/14/22 07:34 59 L 11/14/22 03:01 62 16 95 11/13/22 22:00 59 L 11/13/22 23:57 11/13/22 23:11 36.5 C 62 16 128/77 96 11/13/22 22:45 56 L 13 95 O2 Del Method FiO2 11/14/22 07:34 Room Air 11/14/22 07:34 11/14/22 03:01 21 11/13/22 22:00 11/13/22 23:57 Room Air, CPAP 11/13/22 23:11 Room Air 11/13/22 22:45 21 Laboratory Results 11/14/22 11/14/22 11/13/22 Range/Units 05:47 05:47 11:20 WBC 5.59 (4.8-10.8) K/ul RBC 4.18 L (4.70-6.10) M/uL Hgb 12.1 L (14.0-18.0) g/dl Hct 36.7 L (42.0-52.0) % MCV 87.8 (80.0-100.0) fL MCH 28.9 (25.0-34.0) pg MCHC 33.0 (32.0-36.0) g/dL RDW Std Deviation 42.8 (36.4-46.3) fL RDW Coeff of Gian 13.2 (11.5-14.5) % Plt Count 198 (130-400) K/uL MPV 9.3 L (9.4-12.4) fL Immature Gran % (Auto) 0.5 % Neut % (Auto) 55.8 % Lymph % (Auto) 31.1 % Letcher % (Auto) 8.9 % Eos % (Auto) 3.2 % Baso % (Auto) 0.5 % Neut # (Auto) 3.11 (1.40-6.50) K/uL Lymph # (Auto) 1.74 (1.20-3.40) K/uL Letcher # (Auto) 0.50 (0.11-0.59) K/uL Eos # (Auto) 0.18 (0.00-0.50) K/uL Baso # (Auto) 0.03 (0.00-0.20) K/uL Immature Gran # (Auto) 0.03 (0.01-0.20) K/uL Sodium 138 138 (136-145) mmol/L Potassium 4.0 4.1 (3.5-5.1) mmol/L Chloride 108 H 107 (98-107) mmol/L Carbon Dioxide 23 25 (21-32) mmol/L Anion Gap 7 6 (3-11) BUN 16 15 (6-23) mg/dl Creatinine 1.11 1.00 (0.6-1.4) mg/dl Est Cr Clr Drug Dosing 78.8 89.0 ml/min Est GFR ( Amer) 81.5 92.4 ml/min Est GFR (Non-Af Amer) 70.3 79.7 ml/min BUN/Creatinine Ratio 14.4 15.0 (10-20) Glucose 91 76 (70-99(Fasting)) mg/dl Calcium 7.9 L 8.4 L (8.6-10.3) mg/dl Magnesium 1.9 (1.7-2.4) mg/dl Total Bilirubin 0.5 0.8 (0.2-1.0) mg/dl AST 13 12 L (13-39) U/L ALT 11 11 (7-52) U/L Alkaline Phosphatase 30 L 38 (34-104) U/L Total Protein 6.2 6.3 (6.0-8.3) gm/dl Albumin 3.4 3.5 (3.4-5.0) gm/dl Globulin 2.8 2.8 (2.5-4.0) gm/dl Albumin/Globulin Ratio 1.2 1.3 (0.9-2) Lipase 15 (11-82) U/L 11/13/22 Range/Units 11:20 WBC 6.36 (4.8-10.8) K/ul RBC 4.22 L (4.70-6.10) M/uL Hgb 12.3 L (14.0-18.0) g/dl Hct 36.6 L (42.0-52.0) % MCV 86.7 (80.0-100.0) fL MCH 29.1 (25.0-34.0) pg MCHC 33.6 (32.0-36.0) g/dL RDW Std Deviation 41.8 (36.4-46.3) fL RDW Coeff of Gian 13.3 (11.5-14.5) % Plt Count 180 (130-400) K/uL MPV 9.4 (9.4-12.4) fL Immature Gran % (Auto) 0.5 % Neut % (Auto) 61.1 % Lymph % (Auto) 27.8 % Letcher % (Auto) 8.2 % Eos % (Auto) 1.9 % Baso % (Auto) 0.5 % Neut # (Auto) 3.89 (1.40-6.50) K/uL Lymph # (Auto) 1.77 (1.20-3.40) K/uL Letcher # (Auto) 0.52 (0.11-0.59) K/uL Eos # (Auto) 0.12 (0.00-0.50) K/uL Baso # (Auto) 0.03 (0.00-0.20) K/uL Immature Gran # (Auto) 0.03 (0.01-0.20) K/uL Sodium (136-145) mmol/L Potassium (3.5-5.1) mmol/L Chloride (98-107) mmol/L Carbon Dioxide (21-32) mmol/L Anion Gap (3-11) BUN (6-23) mg/dl Creatinine (0.6-1.4) mg/dl Est Cr Clr Drug Dosing ml/min Est GFR ( Amer) ml/min Est GFR (Non-Af Amer) ml/min BUN/Creatinine Ratio (10-20) Glucose (70-99(Fasting)) mg/dl Calcium (8.6-10.3) mg/dl Magnesium (1.7-2.4) mg/dl Total Bilirubin (0.2-1.0) mg/dl AST (13-39) U/L ALT (7-52) U/L Alkaline Phosphatase (34-104) U/L Total Protein (6.0-8.3) gm/dl Albumin (3.4-5.0) gm/dl Globulin (2.5-4.0) gm/dl Albumin/Globulin Ratio (0.9-2) Lipase (11-82) U/L
--- NOTE | 2022-11-14 09:39 | History & Physical Bridge Note ---
Date of Service November 14, 2022 History & Physical Bridge Note I have examined the patient, reviewed the History & Physical and in the interval since the performance of the History & Physical I have noted the following changes of clinical significance: no changes noted
[2022-11-14] MEDS ORDERED: fentaNYL citrate PF 100 MCG/2 ML VIAL IV PRN (11:57)
[2022-11-14] MEDS ORDERED: ONDANSETRON INJ 2 MG/ML 2 ML VIAL IV PRN ×2 (11:57→16:37)
[2022-11-14] MEDS ORDERED: ePHEDrine sulfate 50 MG/ML AMP IV PRN (11:57)
[2022-11-14] MEDS ORDERED: ATROPINE SULFATE 0.1 MG/ML 10ML SYR IV PRN (11:57)
--- NOTE | 2022-11-14 11:57 | Anesthesiology Consultation ---
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 Surgery Operation Date: 11/14/22 14:15 Proposed Procedures p Laparoscopic Cholecystectomy - Ricardo De Los Santos MD Height/Weight Height: 5 ft 10 in Weight: 95 kg Allergies Allergy/AdvReac Type Severity Reaction Status Date / Time amoxicillin Allergy Unknown Hives Verified 11/12/22 11:16 aspirin AdvReac Intermediate EPISTAXIS Verified 11/12/22 11:16 atorvastatin AdvReac Muscle Pain Verified 11/12/22 11:16 Medications Home Medications Medication Instructions Recorded Confirmed Last Taken Auto Titrating CPAP See Rx Instructions .Route 09/16/20 11/12/22 11/11/22 15:00 .COMPLEX #1 ea apixaban 5 mg tablet (Eliquis) 5 mg PO BID 07/11/22 11/12/22 11/11/22 15:00 Active Medications Generic Name Dose Route Start Last Admin Trade Name Freq PRN Reason Stop Dose Admin Ceftriaxone Sodium 2,000 mg/ 70 mls @ 100 mls/hr 11/13/22 06:00 11/14/22 05:38 Dextrose IV 11/21/22 06:41 Infused Q24H TALITA Infusion Protocol Metronidazole 500 mg in 100 mls @ 100 mls/hr 11/12/22 09:15 11/14/22 10:08 Flagyl IV 11/22/22 09:14 Infused Q8H TALITA Infusion Protocol Acetaminophen 1,000 mg in 100 mls @ 400 mls/hr 11/12/22 19:49 11/14/22 09:17 Ofirmev IV 11/15/22 19:48 Infused Q8H PRN Infusion Pain or Fever Sodium Chloride 1,000 mls @ 100 mls/hr 11/13/22 16:00 11/14/22 10:55 Nss IV 12/13/22 15:59 100 mls/hr .Q10H TALITA Administration Past Medical History Medical History Anemia Diverticular disease History of COVID-19 11/2020; fever, loss of taste/smell; resolved. HLD (hyperlipidemia) Injury of right rotator cuff Perforated bowel hx Sleep apnea CPAP Past Family History Family History Grandmother (Maternal) Colorectal cancer Father Myocardial infarction Mother Ovarian cancer Other No family history of adverse response to anesthesia Denies family history of Prostate cancer Breast cancer Past Surgical History Surgical History History of arthroscopy of right knee History of colon resection History of colonoscopy History of esophagogastroduodenoscopy (EGD) Social History Smoking Status: Never smoker Do You Dip or Chew Tobacco: Yes Hx Alcohol Use: No Hx Substance Use: No substance use type: does not use Physical Exam Vital Signs Last Vital Signs Temp 98.1 F 11/14/22 10:59 Pulse 57 L 11/14/22 10:59 Resp 14 11/14/22 10:59 BP 134/81 11/14/22 10:59 Pulse Ox 95 11/14/22 10:59 O2 Del Method Room Air 11/14/22 10:59 FiO2 21 11/14/22 03:01 Testing Laboratory Results 11/14/22 05:47 11/14/22 05:47 Electrocardiogram Date: 11/12/22 Sinus bradycardia, rate 57 bpm Otherwise normal ECG When compared with ECG of 11-JUL-2022 10:00, No significant change was found Confirmed by Kareem Guadarrama ([id number]) on 11/12/2022 9:28:01 AM Chest X-Ray Date: 11/12/22 FINDINGS: No pneumothorax. No pleural effusions. Stable prominence of interstitial markings. No new focal lung consolidations to suggest pneumonia. No evidence for pulmonary edema. The cardiac silhouette remains borderline enlarged. IMPRESSION: No significant change compared to the prior study. No acute process. Echocardiogram Date: 09/06/22 Normal LV size with normal systolic function. EF 60-65%. No regional wall motion abnormalities. Moderate concentric LVH. Mild LA dilation Mild MR Normal estimated RVSP
[2022-11-14] MEDS ORDERED: BUPIVACAINE/EPINEPHRINE 0.25% 1:200,000 30 ML VIAL ONE (13:30)
[2022-11-14] MEDS ORDERED: fentaNYL citrate PF 100 MCG/2 ML VIAL ONE ×2 (13:30→14:24)
[2022-11-14] MEDS ORDERED: MIDAZOLAM HCL 1 MG/ML 2ML VIAL ONE (13:30)
[2022-11-14] MEDS ORDERED: ONDANSETRON INJ 2 MG/ML 2 ML VIAL ONE (14:27)
[2022-11-14] MEDS ORDERED: ROCURONIUM BROMIDE 10 MG/ML 5 ML VIAL IV ONE (14:27)
[2022-11-14] MEDS ORDERED: LIDOCAINE 2% 2 ML VIAL/AMP(20MG/ML) INFIL ONE (14:27)
[2022-11-14] MEDS ORDERED: PROPOFOL IV EMULSION 10 MG/ML 20 ML VIAL IV ONE (14:27)
[2022-11-14] MEDS ORDERED: DEXAMETHASONE SOD INJ 4 MG/ML VIAL ONE (14:27)
[2022-11-14] MEDS ORDERED: LABETALOL HCL IV 5 MG/ML 20ML IV ONE (14:38)
--- NOTE | 2022-11-14 14:48 | Post Operative Brief Note ---
Immediate Post Op Note v1 Date of Surgery November 14, 2022 Pre & Post Diagnosis Operation Date: 11/14/22 14:15 Pre-Op Diagnosis: Biliary Colic, Cholelithiasis Post-Op Diagnosis: Biliary Colic, Cholelithiasis I identified the patient and participated in the time-out.: Yes Procedure Operation Date: 11/14/22 14:15 Actual Procedures p Laparoscopic Cholecystectomy(Not Applicable) - Ricardo De Los Santos MD Surgeon Ricardo De Los Santos MD Copy And Print Associate LILI Snowden assisted with tissue retraction, camera op, closure Estimated Blood Loss 5 Findings Consistent with Post-Op Diagnosis
--- NOTE | 2022-11-14 14:48 | Operative Report ---
Post Operative Report Pre & Post Diagnosis Operation Date: 11/14/22 14:15 Pre-Op Diagnosis: Biliary Colic, Cholelithiasis Post-Op Diagnosis: Biliary Colic, Cholelithiasis I identified the patient and participated in the time-out.: Yes Procedure Operation Date: 11/14/22 14:15 Actual Procedures p Laparoscopic Cholecystectomy(Not Applicable) - Rciardo De Los Santos MD Surgeon Ricardo De Los Santos MD Unix Administrator LILI Snowden assisted with tissue retraction, camera op, closure Estimated Blood Loss 5 Findings Consistent with Post-Op Diagnosis Acute cholecystitis Specimens Gallbladder Drains None Anesthesia Type General Complications No immediate complications Description of Procedure The patient was taken to the operating room, and placed supine on the operating table. A timeout was performed, perioperative antibiotics were administered, SCD boots were placed. After adequate anesthesia and analgesia was obtained, the abdomen was prepped and draped in the normal sterile fashion. Local anesthetic was injected into and around the proposed incision sites. An incision was made with a 15 blade scalpel in the supraumbilical region and carried down to the level of the fascia. The fascia was grasped with a trach hook, and a varies needle was used to enter the abdominal cavity. The abdomen was insufflated to a pressure of 15 mmHg, and a 11 mm trocar was placed in this location. A 10 mm, 30 degree laparoscope was placed into the abdominal cavity, and the abdomen was surveyed. There was a significant inflammatory reaction in the right upper quadrant. Omentum was attached and adhesed to the gallbladder. Two 5 mm trochars were placed along the right costal margin, and one 5 mm trocar was placed in the subxiphoid region under direct visualization. The gallbladder was grasped and retracted cephalad and laterally, however slowly able to dissect the omental attachments away from the gallbladder, exposing the triangle of Calot. Dissection began in the triangle with a combination of blunt dissection with the [place] dissector, and judicious use of the hook cautery. The cystic duct and cystic artery were dissected free circumferentially, and a critical view of safety was obtained. The cystic duct and cystic artery were clipped and transected, and the gallbladder was removed from the gallbladder fossa with the hook cautery. The camera was switched to a 5 mm, the gallbladder was placed in an Endo Catch bag, and removed via the supraumbilical port site. The camera was switched back to the 10 mm camera, and the abdomen was surveyed again. Hemostasis was checked and attended, and was excellent. The abdomen was copiously irrigated and suctioned free. Again hemostasis was checked and was excellent. All trochars were removed under direct visualization. The abdomen was desufflated. The fascia in the 11 mm port site was closed with a 0 Vicryl suture. The skin was closed with a running 4-0 Monocryl subcuticular stitch. Dermabond was applied. The patient tolerated the procedure without complication, and was transferred in stable condition to the PACU. All instrument, needle, and sponge counts were correct at the end of the case. My children's nursery assistant was necessary throughout the procedure for tissue retraction, possible camera operation, and closure of the wounds. I understand that section 1842(b)(7)(D) of the Social Security act generally prohibits Medicare physician fee schedule payment for the services of assistants at surgery in teaching hospitals when qualified residents are available to furnish such services. I certify that the services for which payment is claimed were medically necessary and that no qualified resident was available to perform the services. I further understand that these services are subject to postpayment review by the Medicare carrier. I attest to the content of the Intraoperative Record and any orders documented therein. Any exceptions are noted below.
--- NOTE | 2022-11-14 16:23 | Anesthesiology Progress Note ---
Date of Service November 14, 2022 Anesthesia Post Procedure Vital Signs Vital Signs: Temp Pulse Pulse Pulse Resp BP BP 11/14/22 15:50 37.4 C 61 14 136/85 11/14/22 15:40 37.4 C 64 16 130/90 11/14/22 15:30 70 18 143/95 H 11/14/22 15:20 68 14 148/91 H 11/14/22 16:00 37.4 C 65 20 136/85 11/14/22 15:10 76 16 145/99 H 11/14/22 15:04 36.7 C 77 10 L 147/90 H 11/14/22 10:59 36.7 C 57 L 14 134/81 11/14/22 07:34 36.3 C L 55 L 16 128/78 11/14/22 07:34 59 L 11/14/22 03:01 62 16 11/13/22 22:00 59 L 11/13/22 23:57 11/13/22 23:11 36.5 C 62 16 128/77 11/13/22 22:45 56 L 13 11/13/22 19:22 36.8 C 72 16 131/81 Pulse Ox O2 Del Method O2 Flow Rate FiO2 11/14/22 15:50 95 Oxymask 3 11/14/22 15:40 96 Nasal Cannula 3 11/14/22 15:30 96 Oxymask 3 11/14/22 15:20 97 Oxymask 5 11/14/22 16:00 97 Nasal Cannula 3 11/14/22 15:10 98 Oxymask 5 11/14/22 15:04 90 Oxymask 7 11/14/22 10:59 95 Room Air 11/14/22 07:34 95 Room Air 11/14/22 07:34 11/14/22 03:01 95 21 11/13/22 22:00 11/13/22 23:57 Room Air, CPAP 11/13/22 23:11 96 Room Air 11/13/22 22:45 95 11/13/22 19:22 95 Room Air Pain Intensity Right Upper Abdomen: Pain Intensity: 2 Right Leg: Pain Intensity: 2 Right Other: Pain Intensity: 2 Transfer of Care Handoff Completed per policy Notes Mental Status: alert / awake / arousable and participated in evaluation Patient Amnestic to Procedure: Yes Nausea / Vomiting: adequately controlled Pain: adequately controlled Airway Patency, RR, SpO2: stable & adequate BP & HR: stable & adequate Hydration State: stable & adequate Anesthetic Complications: no major complications apparent and Pt Satisfied with anesthetic care
[2022-11-14] MEDS ORDERED: oxyCODONE/ACETAMINOPHEN 5mg/325mg TAB PO PRN (16:37)
[2022-11-14] MEDS ORDERED: diphenhydrAMINE Capsule 25 MG CAP PO PRN (16:37)
[2022-11-14] MEDS ORDERED: KETOROLAC 30 MG/ML VIAL IV PRN (16:37)
[2022-11-14] MEDS ORDERED: MoRPHine SULFATE 2 MG/ML CARP IV PRN ×2 (16:39→17:14)
--- NOTE | 2022-11-14 17:13 | Hospitalist Progress Note ---
Date of Service November 14, 2022 Assessment & Plan (1) Biliary colic: Plan: patient presents with right upper quadrant pain associated with vomiting x2 Ultrasound shows gallstones with no gallbladder wall thickening or biliary dilatation LFTs remain negative -HIDA scan normal No fever or leukocytosis Cheung sign remained positive and pain recurred after diet resumed General surgery consulted-now s/p lap tyron on 11/[address] De Los Santos- intraoperative findings consistent with acute cholecystitis continue IV ceftriaxone and Flagyl -Patient having more pain postoperatively-increase morphine to 4 mg IV every 4 hours for severe pain, and 2 mg IV every 4 hours for moderate pain, oxycodone as needed -Clear liquids diet for now and advance as tolerated -Follow CBC, CMP in the morning (2) Acute cholecystitis: Plan: As above (3) Obstructive sleep apnea: Plan: patient uses CPAP at night CPAP ordered while here (4) Deep vein thrombosis of left lower extremity: Plan: patient had a left knee surgery back in May which was complicated by a left lower extremity DVT a few days later He was started on Eliquis and has been on it since x 6 months -Holding ELiquis until post-op but would recommend he stay on it for at least 2 more weeks after surgery given increased risk of DVT provoked by surgery -With right thigh cramping postoperatively and patient also would like to know if he still has a clot in the left leg-check bilateral lower extremity venous Dopplers -Restart Eliquis as soon as okay with surgeon -If has DVT on Dopplers, would start heparin drip until okay to start Eliquis as per surgery (5) Pre-syncope: Plan: has had numerous episodes of presyncope for which he has seen Neuro and Cardiology over the last 1-2 months Seizures were ruled out and had brain imaging as per /patient had ECHO 09/2022 no valvular disease and normal EF has stress test ordered as outpt but not yet completed however has no anginal symptoms, troponins here negative serially, ECG no ischemic changes here with SB while sleeping and 60s during day and no other arrhythmias here he had a brief similar episode that was associated with the RUQ pain and resolved with lying flat, vitals normal during the episode--> perhaps vasovagal? continue to monitor No need to remain on telemetry at this point Plan DVT prophylaxis: hold Eliquis, has SCDs in place Dispo-continued stay Admission and Anticipated Discharge Date Admission Date: November 12, 2022 Subjective Patient seen right after returning from cholecystectomy. Anesthesia called me to let me know that the patient was complaining of a significant right thigh cramp postoperatively given his history of DVT, there was some concern for this. The patient is also concerned to know if he still has a left lower extremity DVT since the diagnosis of that back in May. The right thigh cramping is now resolved but he is having 6 out of 10 right upper quadrant abdominal pain. No nausea but has low appetite. Telemetry with sinus bradycardia normal sinus rhythm with rates in the 50s to 70s. Physical Exam Constitutional: WD/WN, vitals as above Neck: trachea midline, no thyromegaly Respiratory: normal respiratory effort, lungs clear to auscultation Cardiovascular: RRR, no murmur, no edema Chest (Breasts): Chest: normal inspection of chest Gastrointestinal (Abdomen): Inspection/Auscultation: + abdomen abnormal to inspection (4 laparoscopic incisions with dermabond in place) Percussion/Palpation: + abdomen tender (in RUQ) and abdomen soft; no guarding Musculoskeletal: Extremities: extremities normal to inspection; no cyanosis and no clubbing Skin: no rashes, warm and dry Neurologic: moves all extremities and awake; no focal motor deficits Psychiatric: A+Ox3, euthymic affect Lymphatic: no lymphedema Results & Data Results & Data Vital Signs (Past 12 Hours) Vital Signs Temp Pulse Pulse Pulse Resp BP BP 11/14/22 17:00 36.8 C 62 16 122/77 11/14/22 16:40 36.8 C 62 16 121/78 11/14/22 15:50 37.4 C 61 14 136/85 11/14/22 15:40 37.4 C 64 16 130/90 11/14/22 15:30 70 18 143/95 H 11/14/22 15:20 68 14 148/91 H 11/14/22 16:00 37.4 C 65 20 136/85 11/14/22 15:10 76 16 145/99 H 11/14/22 15:04 36.7 C 77 10 L 147/90 H 11/14/22 10:59 36.7 C 57 L 14 134/81 11/14/22 07:34 36.3 C L 55 L 16 128/78 11/14/22 07:34 59 L Pulse Ox O2 Del Method O2 Flow Rate 11/14/22 17:00 93 Room Air 11/14/22 16:40 92 Room Air 11/14/22 15:50 95 Oxymask 3 11/14/22 15:40 96 Nasal Cannula 3 11/14/22 15:30 96 Oxymask 3 11/14/22 15:20 97 Oxymask 5 11/14/22 16:00 97 Nasal Cannula 3 11/14/22 15:10 98 Oxymask 5 11/14/22 15:04 90 Oxymask 7 11/14/22 10:59 95 Room Air 11/14/22 07:34 95 Room Air 11/14/22 07:34 Laboratory Results CBC, CMP, magnesium reviewed PG Care Time/CCT Total # of Minutes Spent Total Time Spent with Patient: Total time spent is greater than 50% in coordination of care (as documented) at patient's floor/unit and/or counseling patient: Coding Level of Care Code 34552 SUB INP/OBS CARE 2MIN Diagnoses Biliary colic K80.50 Acute cholecystitis K81.0 Obstructive sleep apnea G47.33 Deep vein thrombosis of left lower extremity I82.402 Pre-syncope R55
--- NOTE | 2022-11-14 18:43 | Ultrasound Report ---
BILATERAL LOWER EXTREMITY VENOUS DOPPLER HISTORY: leg cramping, h/o DVT COMPARISON STUDY: None. FINDINGS: There is normal compressibility, flow, and augmentation within the bilateral lower extremit y deep venous systems. IMPRESSION: No DVT within the right or left lower extremity. ACT 112: Negative or not required by law. Electronically signed by: Joshua Holden M.D. 11/14/2022 6:41 PM
[2022-11-14] MEDS: MoRPHine SULFATE 2 MG/ML CARP IV PRN ×2 (20:16→20:41)
[2022-11-15] MEDS: metroNIDAZOLE 500 MG/100 ML BAG IV SCH ×3 (01:22→17:08)
[2022-11-15] MEDS: SODIUM CHLORIDE 0.9% 1,000 ML IV SCH (02:26)
[2022-11-15] MEDS: cefTRIAXone SODIUM 2,000 MG in DEXTROSE 5% 50 ML IV SCH (04:57)
[2022-11-15 07:04] LABS: Basophils # (auto) 0.02 K/uL (0.00-0.20); Basophils % (auto) 0.3 %; Eosinophils # (auto) 0.06 K/uL (0.00-0.50); Eosinophils % (auto) 0.8 %; Hematocrit (blood only) 35.5 % (42.0-52.0); Hemoglobin 11.8 g/dl (14.0-18.0); Immature Granulocytes # (auto) 0.05 K/uL (0.01-0.20); Immature Granulocytes % (auto) 0.6 %; Lymphocytes # (auto) 1.58 K/uL (1.20-3.40); Lymphocytes % (auto) 20.5 %; Mean Corpuscular Hemoglobin 28.8 pg (25.0-34.0); Mean Corpuscular Hgb Conc 33.2 g/dL (32.0-36.0); Mean Corpuscular Volume 86.6 fL (80.0-100.0); Mean Platelet Volume 9.5 fL (9.4-12.4); Monocytes # (auto) 0.66 K/uL (0.11-0.59); Monocytes % (auto) 8.5 %; Neutrophils # (auto) 5.35 K/uL (1.40-6.50); Neutrophils % (auto) 69.3 %; Platelet Count 220 K/uL (130-400); RDW Coefficient of Variation 13.6 % (11.5-14.5); RDW Standard Deviation 42.2 fL (36.4-46.3); White Blood Count 7.72 K/ul (4.8-10.8)
[2022-11-15 07:14] LABS: Albumin Globulin Ratio 1.2 (0.9-2); Albumin Level 3.6 gm/dl (3.4-5.0); BUN Creatinine Ratio 10.8 (10-20); Bilirubin,Total 0.5 mg/dl (0.2-1.0); Est GFR (African American) 81.5 ml/min; Est GFR (Non-African American) 70.3 ml/min; Globulin 2.9 gm/dl (2.5-4.0); Potassium 4.1 mmol/L (3.5-5.1); Total Protein 6.5 gm/dl (6.0-8.3)
[2022-11-15] MEDS: MoRPHine SULFATE 2 MG/ML CARP IV PRN (11:21)
[2022-11-15] MEDS ORDERED: APIXABAN 5 MG TABLET PO SCH (12:45)
--- NOTE | 2022-11-15 13:59 | Discharge Summary ---
Discharge Summary Date of Service November 15, 2022 Notes For Next Care Provider Medication Changes From Visit Percocet 5/325 mg take 1-2 tabs po q4hrs prn pain Admission HPI Per Admitting Provider This is a 62-year-old male who presented to the emergency room with the above chief complaint. In brief, the patient had a regular day yesterday, had pizza and peppers for supper at around 4 PM. later at 7 PM, he started developing a right upper quadrant pain that was getting worse with time. He tried to belch, change positions, nothing helped. The pain got as bad as a 10/10 in intensity. It was associated with vomiting. He vomited twice and that is when he decided to come to the emergency room. He had a bowel perforation from diverticulitis in the past and this pain was very similar to that and thus he did not wait for too long. He had an right upper quadrant ultrasound done in the emergency room that showed that the gallbladder was mildly distended with multiple stones. No wall thickening, biliary dilatation or pericholecystic fluid seen. He does not have any leukocytosis or fever. Surgery was consulted from the emergency room who recommended a HIDA scan. The patient received 4 mg of morphine in the emergency room with some relief of the pain. Currently the pain is at a 3/10 in intensity but coughing or palpation Of the right upper quadrant is making the pain worse. The patient is being admitted. He will be started on IV antibiotics. General surgery will be consulted. HIDA scan ordered. Please note that the patient is not on prednisone and cyclobenzaprine as noted in the home med rec. He only takes Eliquis at home. He was diagnosed with a DVT after his left knee surgery in May. He has been on Eliquis since then. It has now been 6 months. Principal Dx & Hospital Course #1 = Principal Diagnosis (1) Biliary colic: patient presents with right upper quadrant pain associated with vomiting x2 Ultrasound shows gallstones with no gallbladder wall thickening or biliary dilatation LFTs remained negative -HIDA scan normal No fever or leukocytosis Cheung sign remained positive and pain recurred after diet resumed General surgery consulted-now s/p lap tyron on 11/[address] De Los Santos- intraoperative findings consistent with acute cholecystitis received IV ceftriaxone and Flagyl but no further antibiotics needed as per my d/w Surgery -doing well on POD#1 with moving bowels, tolerating reg diet, pain controlled with po meds Stable for dc to home, f/u with Surgery in 1-2 weeks (2) Acute cholecystitis: As above (3) Obstructive sleep apnea: patient uses CPAP at night CPAP ordered while here (4) Deep vein thrombosis of left lower extremity: patient had a left knee surgery back in May which was complicated by a left lower extremity DVT a few days later He was started on Eliquis and has been on it since x 6 months -held ELiquis for surgery but ok to restart now on discharge -recommend that he stay on it for at least 2 more weeks after surgery given increased risk of DVT provoked by surgery -With right thigh cramping postoperatively and patient also would like to know if he still has a clot in the left leg-checked bilateral lower extremity venous Dopplers-NEGATIVE --f/u with PCP but can dc Eliquis after PCP f/u appt (5) Pre-syncope: has had numerous episodes of presyncope for which he has seen Neuro and Cardiology over the last 1-2 months Seizures were ruled out and had brain imaging as per /patient had ECHO 09/2022 no valvular disease and normal EF has stress test ordered as outpt but not yet completed however has no anginal symptoms, troponins here negative serially, ECG no ischemic changes here with SB while sleeping and 60s during day and no other arrhythmias here he had a brief similar presyncopal episode that was associated with the RUQ pain and resolved with lying flat, vitals normal during the episode--> perhaps vasovagal? no further episodes since surgery--> could possibly have been related to his GB disease all along? Monitor as an outpt Plan DVT prophylaxis: SCDs Dispo-doing very well, stable for dc to home Discharge Exam Constitutional WD/WN, vitals as above Neck trachea midline, no thyromegaly Respiratory normal respiratory effort, lungs clear to auscultation Cardiovascular RRR, no murmur, no edema Chest (Breasts) Chest: normal inspection of chest Gastrointestinal (Abdomen) Inspection/Auscultation: normal bowel sounds; + abdomen abnormal to inspection (4 laparoscopic incisions with dermabond in place) and abdomen not distended Percussion/Palpation: abdomen soft; abdomen nontender Musculoskeletal Extremities: extremities normal to inspection; no cyanosis and no clubbing Skin no rashes, warm and dry Neurologic moves all extremities and awake; no focal motor deficits Psychiatric A+Ox3, euthymic affect Lymphatic no lymphedema Updated Medication List Medication Instructions Recorded Confirmed Type Auto Titrating CPAP See Rx Instructions .Route 09/16/20 11/12/22 Rx .COMPLEX #1 ea apixaban 5 mg tablet (Eliquis) 5 mg PO BID 07/11/22 11/12/22 History oxycodone-acetaminophen 5 mg-325 1 - 2 tab PO Q6H PRN 11/15/22 Rx mg tablet (Percocet) moderate-severe pain #20 tabs Hospital Stay Data Consultations 11/12/22 06:35 ED Decision to Admit Stat 11/12/22 08:54 Consult General Surgery Routine Procedures Performed Operation Date: 11/14/22 14:15 Actual Procedures p Laparoscopic Cholecystectomy(Not Applicable) - Ricardo De Los Santos MD Diagnostic Imagining Performed 11/12/22 04:20 US gallbladder Stat 11/14/22 17:13 US venous doppler LE BI Stat Pending Results Patient Have Any Pending Studies at Discharge: Yes (Gallbladder pathology) Discharge Instructions Given to Patient (Per Discharging Provider) You can take oxycodone as needed for pain. You can also take acetaminophen (Tylenol) as needed for milder pain. You should remain on your Eliquis for at least 2 more weeks and then discuss with your PCP about stopping this as you no longer have any blood clots in your leg. Total Time Total Time Spent Total Time Spent (In Minutes): 35 min Coding Level of Care Code 25821 INP/OBS DISCH >30 MIN Diagnoses Biliary colic K80.50 Acute cholecystitis K81.0 Obstructive sleep apnea G47.33 Deep vein thrombosis of left lower extremity I82.402 Pre-syncope R55
--- NOTE | 2022-11-15 14:50 | Surgery Progress Note ---
Date of Service November 15, 2022 Assessment & Plan (1) Biliary colic: (2) Cholelithiasis: Plan POD # 1 s/p laparoscopic cholecystectomy -avss - postop pain controlled - no nv Plan: advance diet as tolerated continue pain management encourage ambulation okay to resume Eliquis possible discharge later today Dr. De Los Santos has seen and examined pt, agrees with above. Admission and Anticipated Discharge Date Admission Date: November 12, 2022 Subjective feeling okay this morning, had abdominal pain last night no n,v tolerating clear liquids ambulated hallway no fevers or chills Physical Exam Constitutional: WD/WN, vitals as above no acute distress and not ill a ppearing Gastrointestinal (Abdomen): Inspection/Auscultation: abdomen normal to inspection; abdomen not distended Percussion/Palpation: + abdomen tender (RUQ and at incision sites appropriate postop) and abdomen soft; no guarding, abdomen not rigid and abdomen not firm Skin: no rashes, warm and dry no jaundice Psychiatric: Orientation: alert and oriented x 3 Results & Data Vital Signs (Past 12 Hours) Vital Signs Temp Pulse Pulse Resp BP Pulse Ox O2 Del Method 11/15/22 11:27 36.8 C 66 16 113/74 97 Room Air 11/15/22 07:41 36.8 C 64 16 114/74 98 Room Air 11/15/22 04:00 36.6 C 55 L 20 116/72 93 CPAP 11/15/22 03:14 66 18 92 11/15/22 02:56 Room Air FiO2 11/15/22 11:27 11/15/22 07:41 11/15/22 04:00 11/15/22 03:14 21 11/15/22 02:56 Laboratory Results 11/15/22 11/15/22 Range/Units 05:58 05:58 WBC 7.72 (4.8-10.8) K/ul RBC 4.10 L (4.70-6.10) M/uL Hgb 11.8 L (14.0-18.0) g/dl Hct 35.5 L (42.0-52.0) % MCV 86.6 (80.0-100.0) fL MCH 28.8 (25.0-34.0) pg MCHC 33.2 (32.0-36.0) g/dL RDW Std Deviation 42.2 (36.4-46.3) fL RDW Coeff of Gian 13.6 (11.5-14.5) % Plt Count 220 (130-400) K/uL MPV 9.5 (9.4-12.4) fL Immature Gran % (Auto) 0.6 % Neut % (Auto) 69.3 % Lymph % (Auto) 20.5 % [place] % (Auto) 8.5 % Eos % (Auto) 0.8 % Baso % (Auto) 0.3 % Neut # (Auto) 5.35 (1.40-6.50) K/uL Lymph # (Auto) 1.58 (1.20-3.40) K/uL [place] # (Auto) 0.66 H (0.11-0.59) K/uL Eos # (Auto) 0.06 (0.00-0.50) K/uL Baso # (Auto) 0.02 (0.00-0.20) K/uL Immature Gran # (Auto) 0.05 (0.01-0.20) K/uL Sodium 136 (136-145) mmol/L Potassium 4.1 (3.5-5.1) mmol/L Chloride 105 (98-107) mmol/L Carbon Dioxide 25 (21-32) mmol/L Anion Gap 6 (3-11) BUN 12 (6-23) mg/dl Creatinine 1.11 (0.6-1.4) mg/dl Est Cr Clr Drug Dosing 79.0 ml/min Est GFR ( Amer) 81.5 ml/min Est GFR (Non-Af Amer) 70.3 ml/min BUN/Creatinine Ratio 10.8 (10-20) Glucose 113 H (70-99(Fasting)) mg/dl Calcium 8.0 L (8.6-10.3) mg/dl Total Bilirubin 0.5 (0.2-1.0) mg/dl AST 22 (13-39) U/L ALT 19 (7-52) U/L Alkaline Phosphatase 34 (34-104) U/L Total Protein 6.5 (6.0-8.3) gm/dl Albumin 3.6 (3.4-5.0) gm/dl Globulin 2.9 (2.5-4.0) gm/dl Albumin/Globulin Ratio 1.2 (0.9-2)
== END 2022-11-15 19:08 | disposition home or self-care (01) | DRG 419 ==
LOC: ED 04:04 → SUATTDRO 08:59 → EDINP 08:59 → 2N 11:17